=== PATIENT | female | born 1945 | race Caucasian/White ===

== ENCOUNTER 2016-09-23 07:20 | Day surgery (SDC) | payer MEDICARE, MEDICAID ==
[~2016-09-23] VITALS: Ht 154.9 cm; Wt 62.6 kg
[~2016-09-23 07:20] MED LIST: ASPI-973 PO; CETI10CA PO; CYCL10TA9 PO; FLUT16SP NS; HYDR25TA4 PO; Lactated Ringer's 1,000 ML IV ONE; METO-274 PO; OMEP20CA11 PO; POTA10TA7 PO; TRAM100T2 PO; VARE1TAB22 PO
[2016-09-23] MEDS ORDERED: Propofol 10,000 mCg/mL 20 mL Inj ONE (07:21)
[2016-09-23] MEDS ORDERED: fentaNYL-PF 50 mCg/mL 2 mL Inj ONE (07:21)
[2016-09-23 07:40] VITALS: BP 131/82; PULSE 94; RESP 16; O2SAT 95
--- NOTE | 2016-09-23 07:51 | PCM.HPANE ---
Patient Data Surgeon Admitting Provider: Attending Provider:Bill Jerry MD Primary Care Physician:Dillon Arauz MD Other Provider:Lori Tolentino Anesthesia Reason for Visit Colon Polyp Ht/WT & BMI Height (Feet): 5 Height (Inches): 1 Weight (Kilograms): 62.6 Body Mass Index 26.00 Allergies Coded Allergies: Txqmyfj-Rui-Jsp Reductase Inhibitor (Verified Allergy, Unknown, 09/22/16) Sulfa (Sulfonamide Antibiotics) (Verified Allergy, Unknown, 09/22/16) iodine (Verified Allergy, Unknown, 09/22/16) methocarbamol (Verified Allergy, Unknown, 09/22/16) quinine (Verified Allergy, Unknown, 09/22/16) Past Anesthesia History Anesthesia History: Denies:: Abnormal Airway, Anesthesia Reactions, Difficult Intubation, Fam Anesthesia Reaction, Fam Malignant Hypertherm, Malignant Hyperthermia Diabetes History Hx Diabetes?: No MRSA MRSA: No Medications Blood Thinner: Aspirin Last Dose Blood Thinner: September 21, 2016 Home Meds Incl Beta Erica: Yes Date Beta Erica Taken: September 21, 2016 Time Beta Erica Taken: 0800 Reported Medications Potassium Chloride ER (Klor-Con 10)10 Meq Xdicks32 Meq PO DAILY Ref 0 09/22/16 Metoprolol Succinate ER 100 Mg Tab.er.17r078 Mg PO DAILY Ref 0 09/22/16 Hydrochlorothiazide 25 Mg Yxsvhx66 Mg PO DAILY 30 Days Ref 0 09/22/16 Aspirin 81 Mg Olspiz46 Mg PO DAILY Ref 0 09/22/16 Omeprazole 20 Mg Capsule.dr20 Mg PO DAILY Ref 0 09/22/16 Fluticasone Propionate (Fluticasone Propionate Nasal)16 Gm Parshall.susp2 Parshall NS BID #16 GM Ref 0 09/22/16 Cyclobenzaprine 10 Mg Xwtxoh82 Mg PO TID PRN Spasm 09/22/16 Cetirizine HCl (Zyrtec)10 Mg Isplrqo25 Mg PO HS #30 CAPSULE Ref 0 09/22/16 Tramadol-Expunged Drug, Do Not Renew! 100 Mg Tab.sr.24h50 Mg PO Q6HP 08/31/12 Discontinued Reported Medications Varenicline Tartrate (Chantix)1 Mg Tablet1 Mg PO 09/22/16 Aspirin-Expunged Drug, Do Not Renew! 81 Mg Tab81 Mg PO DAILY 08/31/12 Metoprolol Tart-Expunged Drug, Do Not Renew! 100 Mg Dfqusk167 Mg PO BID 08/31/12 POTASSIUM GLUC-Expunged Drug, Do Not Renew! (POTASSIUM-Expunged Drug, Do Not Renew!)99 Mg Nkjdas36 Meq PO DAILY 08/31/12 Hydrochlorothiazide-Expunged, Do Not Renew! 25 Mg Xfywea11 Mg PO DAILY 08/31/12 History History of ENT Problems?: No HEENT History: Positive for:: Dysphagia (ONCE IN A WHILE ) Denies:: Abnormal Airway Difficult Intubation Hearing Problem Denture Type: Full- Upper Full- Lower Teeth Condition: Within Normal Limits Hx of Heart Problems?: No Cardiovascular History: Positive for:: Hypertension Denies:: AICD Atrial Fibrillation Chest Pain Pacemaker Valvular Heart Disease Hx of Respiratory Problem?: No Respiratory History: Denies:: Asthma COPD Cough Hemoptysis Pneumonia Tuberculosis Hx Neurologic Problems?: No Neurological History: Denies:: CVA Hx of GI Problems?: Yes Hx of Problems?: No Female Hx: Denies:: Currently Hx Musculoskeletal Problems?: No Musculoskeletal History: Denies:: Joint Replacement Psycho Social History: Denies:: Anxiety Hx Depression Hx Surgeries?: Yes (Tonsils, bladder procedure, tubal) Hx Any Other Health Problems?: Yes Hx Diabetes: No Hx Alcohol Use: No Stop/Bang Treated for Sleep Apnea?: No Do You Have a CPAP Machine?: No S-Snoring: Do You Snore Loudly: Yes T-Tired: feel tired, fatigued: No O-Obsered: Observed not breath: No P-Blood Pressure: treated: Yes B- Body Mass Index > 35 kg/m2: No A- Age over 50: Yes N- Neck Large Circumference: No G- Gender Male: No AURELIA Total Score: 3 Risk Assessment Category Category 1A: Patient has history of documented sleep apnea, and HAS NOT received any narcotic, sedative or anesthesia administration during this stay. Category 1B: Patient has history of documented sleep apnea, and HAS received any narcotic , sedative or anesthesia administration during this stay Category 2: Patient has SUSPECTED Obstructive Sleep Apnea, and HAS received any narcotic , sedative or anesthesia administration during this stay. Category 3: Patient has SUSPECTED Obstructive Sleep Apnea and HAS NOT received narcotic, sedative or anesthesia administration during this stay. Category 4: Outpatient in Procedural Areas with known sleep apnea or who screen positive for High Risk via the STOP/BANG questionnaire. Exam Exam Vital Signs Vital Signs Date Time Temp Pulse Resp B/P Pulse Ox O2 Delivery O2 Flow Rate FiO2 09/23/16 07:40 94 16 131/82 95 Room Air General Appearance: Alert, Oriented X3, Cooperative, Mild Distress HEENT/AIRWAY: MP 2, Neck Movement (FROM), Mouth Opening (WNL) Lungs: Clear to Auscultation Heart: Exam Unremarkable Plan Impression Patient chart reviewed, patient interviewed and anesthestic plan with risks, benefits, and alternatives discussed, and informed consent obtained. ASA Physical Status: ASA2 Mod Systemic Disease Anesthetic Plan: GA Bene/Risks/Altern/Consents: Yes HP Complete Prior to Induction: Yes Jaden Toure MD September 23, 2016 07:51
[2016-09-23] MEDS ORDERED: Lactated Ringer's 1,000 ML IV SCH (08:14)
[2016-09-23] MEDS ORDERED: MetoCLOpramide 5 mg/mL 2 mL Inj IVPUSH PRN (08:15)
[2016-09-23] MEDS ORDERED: Ondansetron 2 mg/mL 2 mL Inj IVPUSH PRN (08:15)
[2016-09-23 08:36] VITALS: BP 111/78; PULSE 87; RESP 16; O2SAT 97
--- NOTE | 2016-09-23 08:37 | PCM.ANEP1 ---
Post Anesthesia Phase 1 PACU Phase 1 Assessment Vital Signs Vital Signs Date Time Temp Pulse Resp B/P Pulse Ox O2 Delivery O2 Flow Rate FiO2 09/23/16 07:40 94 16 131/82 95 Room Air Anesthetic Administered: GA Level of Alertness: Awake, talking FOREMAN's with Equal Strength: Yes Pain: No Nausea or Vomiting: No Oxygen Delivery: Room Air Lungs: Normal Air Movement Complications: No Follow up Care: No Jaden Toure MD September 23, 2016 08:37
[2016-09-23 08:53] VITALS: BP 134/81; PULSE 81; RESP 16; O2SAT 100
--- NOTE | 2016-09-23 08:56 | ENDO ---
[address] [address] ENDOSCOPY PROCEDURE PATIENT: ADITI CULP : 1945 MR#: [id number] ADMIT: 09/23/2016 JOB ID: [id number] DATE: 09/23/2016 PRIMARY PROVIDER: Dillon Arauz. PROCEDURE: Colonoscopy with hot and cold snare polypectomy. INDICATIONS: A 70-year-old female with a personal history of colon polyps. EQUIPMENT: PCF H 180 AL. SEDATION: Monitored anesthesia as provided by Dr. Iván Toure. COMPLICATIONS: None identified. BOWEL PREPARATION: Fair, adequate examination. PROCEDURAL INFORMATION: After the risks and benefits were explained, written and verbal informed consent was obtained. The patient was brought into the endoscopy suite and placed into the left lateral decubitus position. Sedation was achieved using the above-stated medications with the addition of oxygen via nasal cannula. A digital rectal examination was accomplished and no significant pathology was appreciated. The scope was introduced into rectum and advanced to the cecum as identified by the appendiceal orifice and ileocecal valve. The scope was slowly withdrawn to carefully examine the mucosa for any defects or lesions. Retroflexed views were avoided in the rectum. Multiple direct views were made through the dentate line for exclusion of pathology. The colon was decompressed. The scope removed from the patient who tolerated the procedure well. FINDINGS: In the ascending, there was a diminutive polyp removed with cold snare. In the descending, there was a slightly larger, perhaps 6 mm sessile polyp removed with hot snare. Both of these were submitted as "colon polyps." There was some diverticulosis in the left colon. Mild internal hemorrhoids were noted on direct views. No other significant pathology was appreciated. ENDOSCOPIC DIAGNOSES: 1. Diverticulosis. 2. Colon polyps. 3. Hemorrhoids. RECOMMENDATIONS: 1. Await histopathology. 2. Repeat colonoscopy five years.
--- NOTE | 2016-09-24 17:05 | PATH ---
SURGICAL PATHOLOGY Attending Physician:Mis Victoria CASE STATUS: Signed Out PATIENT NAME: ADITI CULP PID: [id number] : 1945 DATE COLLECTED:09/23/2016 18:01 SPECIMEN: Colon, Biopsy CLINICAL HISTORY: 1.RANDOM COLON POLYP FINAL DIAGNOSIS: Random Colon Polyps, Biopsies: Portions of tubular adenoma x5; negative for high-grade dysplasia. Portions of vegetable matter x2. ICD10: K63.5 GROSS DESCRIPTION: The specimen is received in one formalin filled container labeled with the patient's name, sublabeled "random colon polyps X2" and consists of multiple portions of tissue and or debris which aggregate to 0.5 x 0.5 x 0.3 CM. The specimen is entirely submitted in one cassette. 09/23/2016 [facility] ICD-9 CODES: CPT CODES: 1: 05410 Electronically Signed Out Jyoti Silva MD [facility] [address], [place] [address] Technical component performed at [facility], [address] [place] [address] Ave[address], [place], [address]
== END 2016-09-23 23:59 | disposition home or self-care (01) ==
LOC: END 07:20
PROVIDERS: ATTEND Internal Medicine Gastroenterology
DX: Z12.11 Encounter for screening for malignant neoplasm of colon (principal); D12.2 Benign neoplasm of ascending colon; D12.4 Benign neoplasm of descending colon; K57.30 Diverticulosis of large intestine without perforation or abscess without bleeding; K64.8 Other hemorrhoids; Z86.010 Personal history of colon polyps; E78.5 Hyperlipidemia, unspecified; K21.9 Gastro-esophageal reflux disease without esophagitis; M54.5 Low back pain; I25.10 Atherosclerotic heart disease of native coronary artery without angina pectoris; M81.0 Age-related osteoporosis without current pathological fracture; Z87.891 Personal history of nicotine dependence; N18.1 Chronic kidney disease, stage 1; I12.9 Hypertensive chronic kidney disease with stage 1 through stage 4 chronic kidney disease, or unspecified chronic kidney disease; Z79.891 Long term (current) use of opiate analgesic; Z79.82 Long term (current) use of aspirin
CPT/HCPCS: 45385; J2250; J3010; J7120